=== PATIENT | female | born 2000 | race Two or more races ===

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

== ENCOUNTER 2020-07-27 19:54 | Emergency (ER) | payer OTHER ==
[~2020-07-27] VITALS: Ht 154.9 cm; Wt 74.7 kg
[2020-07-27 19:54] VITALS: BP 138/76
== END 2020-07-27 22:06 | disposition left against medical advice (07) ==
LOC: M ED 19:54
DX: Z53.21 Procedure and treatment not carried out due to patient leaving prior to being seen by health care provider (principal)